=== PATIENT | female | born 1970 | race African-American/Black ===

== ENCOUNTER 2021-01-18 05:13 | Emergency (ER) | payer SELFPAY ==
[2021-01-18] VITALS (17 sets, daily range): BP systolic 131–176; BP diastolic 61–119; PULSE 71–112; RESP 14–24; TEMP 36.8; O2SAT 98–100
--- NOTE | ~2021-01-18 | XR_ITS ---
EXAMINATION: XR chest 1V portable DATE: 01/18/2021 06:17 INDICATION: Left chest pain. TECHNIQUE: A single frontal view of the chest was obtained. COMPARISON: Chest 2 views 12/17/2010, CT abdomen and pelvis 09/12/2019 FINDINGS: There is no pneumonia, pleural effusion, or pneumothorax. Cardiomegaly is noted. IMPRESSION: 1. Cardiomegaly. Reviewed, dictated and finalized at location A. IMPRESSION: 1. Cardiomegaly.
--- NOTE | 2021-01-18 05:28 | ECG_ITS ---
Measurements Intervals [place] Rate: 103 P: 52 MN: 150 QRS: 57 QRSD: 86 T: 24 QT: 334 QTc: 437 Interpretive Statements SINUS TACHYCARDIA DELAYED PRECORDIAL R/S TRANSITION BORDERLINE ECG Electronically Signed On 01-18-2021 7:14:24 CDT by Jose Mendosa D.O.
[2021-01-18 05:39] LABS: Basophils Percent Auto 0.2 % (0.2-1.2); Eosinophils Absolute Auto 0.2 K/mm3 (0-0.3); Eosinophils Percent Auto 4.8 % (0-4.4); Hematocrit 42.9 % (37.0-47.0); Hemoglobin 14.5 g/dL (12.0-15.0); Immature Granulocyte Absolute 0.01 K/mm3 (0.00-0.031); Immature Granulocyte Percent A 0.2 % (0-0.5); Lymphocytes Absolute Auto 1.24 K/mm3 (0.9-3.2); Lymphocytes Percent Auto 27.3 % (18.3-44.2); Mean Corpuscular HGB Conc 33.8 g/dl (32-36); Mean Corpuscular Hemoglobin 30.9 pg (26-34); Mean Corpuscular Volume 91.3 fl (80-100); Mean Platelet Volume 9.4 fl (7.4-10.4); Monocytes Absolute Auto 0.4 K/mm3 (0.1-0.6); Monocytes Percent Auto 8.1 % (2.6-8.5); Neutrophils Absolute Auto 2.7 K/mm3 (1.3-6.7); Neutrophils Percent Auto 59.4 % (45.5-73.1); Platelet Count Result 236 k/mm3 (150-375); Red Cell Distribution Width 13.4 % (11.5-14.5); White Blood Count 4.5 K/mm3 (4.5-10.0)
[2021-01-18 05:51] LABS: Alanine Aminotransferase 17 U/L (4-35); Albumin Level 4.3 g/dL (3.5-5.1); Alkaline Phosphatase 59 U/L (38-126); Anion Gap 9 mmol/L (8-16); Aspartate Amino Transferase 22 U/L (14-36); Bilirubin,Total 0.3 mg/dL (0.2-1.3); Blood Urea Nitrogen 14 mg/dL (7-17); Calcium 9.1 mg/dL (8.4-10.2); Carbon Dioxide 25 mmol/L (22-30); Chloride 107 mmol/L (98-107); Estimated Glomerular Filt Rate > 60; Glucose 125 mg/dL (65-105); INR 0.9; Lipase 121 U/L (23-300); Prothrombin Time 13.2 Seconds (11.1-14.7); Sodium 141 mmol/L (137-145)
[2021-01-18 05:52] LABS: Partial Thromboplastin Time 26.3 SECONDS (22.3-36.8)
--- NOTE | 2021-01-18 05:56 | ED.GENADULT ---
HPI - General Adult General Chief complaint: Chest Pain <Nirmal Bower MD - Last Filed: 01/18/21 05:58> Stated complaint: heart racing/chest tightness <Nirmal Bower MD - Last Filed: 01/18/21 05:58> Time Seen by Provider: 01/18/21 05:16 <Nirmal Bower MD - Last Filed: 01/18/21 05:58> History of Present Illness HPI narrative: Patient is a 50-year-old female presents to the emergency department with chief complaint of left-sided chest discomfort and palpitations. Patient reports that a week or so ago she fell landing on the left side of her body reports that she had pain in the muscles on that side and in her left shoulder. Patient states that evening she started feeling not so well and reported that she laid down and then felt as though she was having palpitations and had tightness in her chest. EMS was called the patient was initially tachycardic in the field and was given a sublingual nitro and aspirin by EMS. Patient states the pressure in her chest improved and reports that her heart rate is slowly calmed down at this point. Patient denies shortness of breath patient reports she has past medical history significant for hypertension reports no prior history of ID states it has been several years since she has had a stress test. Patient denies smoking. <Nirmal Bower MD - Last Filed: 01/18/21 05:58> Related Data Home medications: Home Medications Medication Instructions Recorded Confirmed amlodipine 10 mg PO DAILY 01/18/21 ferrous sulfate 325 mg PO DAILY 01/18/21 hydrochlorothiazide 12.5 mg PO DAILY 01/18/21 metoprolol tartrate 50 mg PO BID 01/18/21 <Nirmal Bower MD - Last Filed: 01/18/21 05:58> Allergies/adverse reactions: Allergies Allergy/AdvReac Type Severity Reaction Status Date / Time No Known Allergies Allergy Mild Unverified 07/19/11 10:33 <Nirmal Bower MD - Last Filed: 01/18/21 05:58> Review of Systems Review of Systems: Narrative: A 10 system review of systems was completed on the patient and is negative except for what is stated in the HPI. Nursing and ancillary documentation was reviewed. <Nirmal Bower MD - Last Filed: 01/18/21 05:58> [facility] Past Medical History Medical History: Medical History Arthritis Fibroids Hypertension <Nirmal Bower MD - Last Filed: 01/18/21 05:58> Surgical History Surgical History: Surgical History Hx of tubal ligation <Nirmal Bower MD - Last Filed: 01/18/21 05:58> Social History Social History: Social History Smoking status: Never smoker Gender identity (if verbalized by the patient): Female <Nirmal Bower MD - Last Filed: 01/18/21 05:58> Exam Narrative: Exam Narrative: GENERAL: Well-appearing, well-nourished, and in no acute distress. HEAD: Normocephalic, atraumatic. EYES: PERRLA and EOMI. ENT: Nares clear, no rhinorrhea or epistaxis. Mucous membranes moist. NECK: Supple. CHEST: Clear to auscultation. No respiratory distress. HEART: Regular rate and rhythm. No murmur heard. Normal peripheral pulses. ABDOMEN: Soft, nontender, nondistended, normal active bowel sounds. EXTREMITIES: Normal range of motion. No edema. SKIN: Warm, dry, no rash. NEURO: No focal deficits. Alert and oriented x3. PSYCH: Normal mood and affect. <Nirmal Bower MD - Last Filed: 01/18/21 05:58> Course Course Emergency Course: EKG shows sinus tachycardia with a rate of [address] elevation or ST depression <Nirmal Bower MD - Last Filed: 01/18/21 05:58> Reevaluation(s) Reevaluation #1: Patient presents with complaint of left chest pain and lateral that has been present for [address]
[2021-01-18 05:59] LABS: NT Pro B Type Natriuretic Pept 452 PG/ML (5-100)
[2021-01-18 06:10] LABS: Troponin I < 0.012 ng/mL (0.000-0.034)
--- NOTE | 2021-01-18 07:21 | PC.NURSE ---
Assumed pt care at this time, pt resting calmly on stretcher, vss, NAD noted, call light in reach, pt updated on wait times and plan of care, denies further concerns.
[2021-01-18 07:56] LABS: Add Urine Microscopic? YES; Appearance Urine Cloudy (Clear); Bacteria Urine Trace /hpf; Bilirubin Urine Negative (Negative); Blood Urine 3+ (Negative); Color Urine Yellow (Yellow); Glucose Urine UA Negative (Negative); Ketones Urine Negative (Negative); Leukocyte Esterase Ur Negative LEU/UL (Negative); Mucus Urine Rare /lpf; Nitrate Urine Negative (Negative); Protein Urine 2+ mg/dL (Negative); RBC Urine 21-50 /hpf (0-2); Specific Grav Ur 1.017 (1.001-1.035); Squamous Epithelial Cell Urine Many /hpf (Few); Urobilinogen Urine Negative mg/dL (<2.0)
[2021-01-18] MEDS: IBUPROFEN IV 800 MG/200 ML 800 MG/200 ML BAG 400 MG IVPB (08:26)
[2021-01-18] MEDS: POTASSIUM CHLORIDE 20 MEQ TABLET 40 MEQ PO (08:43)
[2021-01-18 08:44] LABS: Troponin I 0.015 ng/mL (0.000-0.034)
== END 2021-01-18 09:37 | disposition home or self-care (01) ==
PROVIDERS: Emergency Medicine; Emergency Provider General Practice
DX: R07.89 Other chest pain (principal); E87.6 Hypokalemia; R00.2 Palpitations; M19.90 Unspecified osteoarthritis, unspecified site; I10 Essential (primary) hypertension; R00.0 Tachycardia, unspecified
CPT/HCPCS: 36415; 71045; 80053; 81001; 83690; 83880; 84484; 85025; 85380; 85610; 85730; 93005; 96365; 99284; A9270; J1741

== ENCOUNTER 2021-12-17 05:07 | Emergency (ER) | payer SELFPAY ==
--- NOTE | ~2021-12-17 | XR_ITS ---
EXAMINATION: XR chest 2V DATE: 12/17/2021 05:43 INDICATION: Heart palpitations TECHNIQUE: PA and lateral views of the chest are obtained. COMPARISON: None available FINDINGS: The lungs are free of acute opacities. There is no pleural effusion or pneumothorax. Cardio megaly is noted. There is mild thoracic spondylosis. IMPRESSION: 1. No acute cardiopulmonary abnormality. Reviewed, dictated and finalized at location A. ING AND CANCELING MACHINE OPERATOR
[2021-12-17 05:05] VITALS: BP 173/87; PULSE 101; RESP 22; TEMP 37.1; O2SAT 100
--- NOTE | 2021-12-17 05:09 | ECG_ITS ---
Measurements Intervals [place] Rate: 94 P: 49 IA: 145 QRS: 44 QRSD: 86 T: 25 QT: 336 QTc: 420 Interpretive Statements SINUS RHYTHM DELAYED PRECORDIAL R/S TRANSITION BORDERLINE ST ABNORMALITY- AMTEROLATERAL LEADS BORDERLINE ECG Electronically Signed On 12-19-2021 15:15:51 HOT ROLL LAMINATOR by Jose Mendosa D.O.
[2021-12-17 05:41] LABS: Basophils Percent Auto 0.2 % (0.2-1.2); Eosinophils Absolute Auto 0.2 K/mm3 (0-0.3); Eosinophils Percent Auto 4.1 % (0-4.4); Hematocrit 37.4 % (37.0-47.0); Hemoglobin 12.1 g/dL (12.0-15.0); Immature Granulocyte Absolute 0.02 K/mm3 (0.00-0.031); Immature Granulocyte Percent A 0.5 % (0-0.5); Lymphocytes Absolute Auto 0.88 K/mm3 (0.9-3.2); Lymphocytes Percent Auto 21.3 % (18.3-44.2); Mean Corpuscular HGB Conc 32.4 g/dl (32-36); Mean Corpuscular Hemoglobin 28.5 pg (26-34); Mean Platelet Volume 9.5 fl (7.4-10.4); Monocytes Absolute Auto 0.4 K/mm3 (0.1-0.6); Monocytes Percent Auto 9.2 % (2.6-8.5); Neutrophils Absolute Auto 2.7 K/mm3 (1.3-6.7); Neutrophils Percent Auto 64.7 % (45.5-73.1); Platelet Count Result 249 k/mm3 (150-375); Red Blood Count 4.25 M/mm3 (4.2-5.4); White Blood Count 4.1 K/mm3 (4.5-10.0)
[2021-12-17 05:51] LABS: Anion Gap 12 mmol/L (8-16); Blood Urea Nitrogen 14 mg/dL (7-17); Calcium 8.7 mg/dL (8.4-10.2); Carbon Dioxide 22 mmol/L (22-30); Chloride 104 mmol/L (98-107); Estimated Glomerular Filt Rate > 60; Glucose 116 mg/dL (65-110); Potassium 3.4 mmol/L (3.4-5.0); Sodium 138 mmol/L (137-145)
[2021-12-17 06:02] LABS: Troponin I < 0.012 ng/mL (0.000-0.034)
[2021-12-17 06:46] VITALS: BP 157/99; PULSE 86; RESP 18; O2SAT 99
--- NOTE | 2021-12-17 06:48 | ED.ARRPALP ---
HPI - Arrhythmia/Palpitations General Chief Complaint: Arrhythmia/Palpitations Stated Complaint: PALPITATIONS Time Seen by Provider: 12/17/21 05:15 History of Present Illness HPI narrative: Patient is a 51-year-old female who presents ER with reports of heart palpitations. Ongoing since 10:30 PM. No aggravating or alleviating factors. Does not feel like she is skipping a beat. No history of arrhythmia. Denies having any anxiety. She does report she ran out of her blood pressure medications 2 days ago is unsure if this is related. She has not scheduled follow-up with PCP. Related Data Home Medications Medication Instructions Recorded Confirmed amlodipine 10 mg PO DAILY 01/18/21 ferrous sulfate 325 mg PO DAILY 01/18/21 hydrochlorothiazide 12.5 mg PO DAILY 01/18/21 metoprolol tartrate 50 mg PO BID 01/18/21 Allergies Allergy/AdvReac Type Severity Reaction Status Date / Time No Known Allergies Allergy Mild Verified 12/17/21 05:13 Review of Systems Review of Systems: All systems reviewed & are unremarkable except as noted in HPI and below Constitutional: Constitutional: Denies chills, Denies fever(s) and Denies weakness ENT: Denies nasal congestion and Denies sore throat Cardiovascular: Cardiovascular: Denies chest pain, Reports rapid heart rate and Denies radiating jaw, neck or arm pain Respiratory: Respiratory: Denies cough, Denies dyspnea and Denies wheezing Gastrointestinal: Gastrointestinal: Denies abdominal pain, Denies nausea and Denies vomiting Musculoskeletal: Musculoskeletal: Denies back pain and Denies muscle cramps Neurologic: Denies headache(s), Denies focal weakness and Denies numbness PMFSH Past Medical History Medical History Arthritis Fibroids Hypertension Surgical History Surgical History Hx of tubal ligation Social History Social History Smoking status: Never smoker Gender identity (if verbalized by the patient): Female Exam Narrative: GENERAL: Well-appearing, well-nourished, and in no acute distress. HEAD: Normocephalic, atraumatic. ENT: Mucous membranes moist. CHEST: Clear to auscultation. No respiratory distress. HEART: Regular rate and rhythm. No murmur heard. Normal peripheral pulses. ABDOMEN: Soft, nontender, nondistended. EXTREMITIES: Normal range of motion. No edema. SKIN: Warm, dry, no rash. NEURO: Alert and oriented x3. PSYCH: Normal mood and affect. Course Course Emergency Course: Patient form results. Resting comfortably. No arrhythmia on EKG or cardiac monitoring. Occasionally has sinus tachycardia. Labs normal. Vital Signs Vital signs: Vital Signs Temperature 98.7 F 12/17/21 05:05 Pulse Rate 101 H 12/17/21 05:05 Respiratory Rate 22 H 12/17/21 05:05 Blood Pressure 173/87 H 12/17/21 05:05 Pulse Oximetry 100 12/17/21 05:05 Temperature 98.7 F 12/17/21 05:05 Pulse Rate 86 12/17/21 06:46 Respiratory Rate 18 12/17/21 06:46 Blood Pressure 157/99 H 12/17/21 06:46 Pulse Oximetry 99 12/17/21 06:46 MDM - Arrhythmia/Palpitations Lab Data Result diagrams: 12/17/21 05:31 12/17/21 05:31 Labs: Lab Results 12/17/21 12/17/21 Range/Units 05:31 05:31 WBC 4.1 L (4.5-10.0) K/mm3 RBC 4.25 (4.2-5.4) M/mm3 Hgb 12.1 (12.0-15.0) g/dL Hct 37.4 (37.0-47.0) % MCV 88.0 (80-100) fl MCH 28.5 (26-34) pg MCHC 32.4 (32-36) g/dl RDW 13.0 (11.5-14.5) % Plt Count 249 (150-375) k/mm3 MPV 9.5 (7.4-10.4) fl Immature Gran % (Auto) 0.5 (0-0.5) % Neut % (Auto) 64.7 (45.5-73.1) % Lymph % (Auto) 21.3 (18.3-44.2) % [place] % (Auto) 9.2 H (2.6-8.5) % Eos % (Auto) 4.1 (0-4.4) % Baso % (Auto) 0.2 (0.2-1.2) % Lymph # (Auto) 0.88 L (0.9-3.2) K/mm3 [place] # (Auto) 0.4
[2021-12-17 07:10] VITALS: BP 142/80; PULSE 78; RESP 16; O2SAT 99
== END 2021-12-17 07:11 | disposition home or self-care (01) ==
PROVIDERS: Emergency Provider Emergency Medicine
DX: R00.2 Palpitations (principal); I10 Essential (primary) hypertension; M19.90 Unspecified osteoarthritis, unspecified site; R94.31 Abnormal electrocardiogram [ECG] [EKG]
CPT/HCPCS: 36415; 71046; 80048; 84484; 85025; 93005; 99284

== ENCOUNTER 2022-11-16 04:38 | Emergency (ER) | payer SELFPAY ==
--- NOTE | ~2022-11-16 | XR_ITS ---
EXAMINATION: XR chest 1V portable DATE: 11/16/2022 05:51 INDICATION: Chest pain. Shortness of breath. TECHNIQUE: A single frontal view of the chest was obtained. COMPARISON: Chest 2 views 12/17/2021, CT abdomen and pelvis 09/12/2019 FINDINGS: There is no pneumonia, pleural effusion, or pneumothorax. Cardiomegaly is noted. IMPRESSION: 1. Cardiomegaly. Reviewed, dictated and finalized at location A. TRONIC GAMING DEVICE SUPERVISOR IMPRESSION: 1. Cardiomegaly.
[2022-11-16 04:49] VITALS: PULSE 94; PULSE 97; RESP 13; TEMP 36.7; O2SAT 99
--- NOTE | 2022-11-16 05:05 | ECG_ITS ---
Measurements Intervals [place] Rate: 91 P: 54 RI: 139 QRS: 45 QRSD: 81 T: 27 QT: 352 QTc: 434 Interpretive Statements SINUS RHYTHM BASELINE ARTIFACT- I, III, AVL, V6 NORMAL ECG COMPARED TO ECG 12/17/2021 05:12:58 NO SIGNIFICANT CHANGES Electronically Signed On 11-16-2022 8:06:45 WEEKEND ANCHOR by Jose Mendosa D.O.
[2022-11-16 05:19] LABS: Basophils Percent Auto 0.5 % (0.2-1.2); Eosinophils Absolute Auto 0.3 K/mm3 (0-0.3); Eosinophils Percent Auto 7.3 % (0-4.4); Hematocrit 32.1 % (37.0-47.0); Hemoglobin 9.6 g/dL (12.0-15.0); Immature Granulocyte Absolute 0.01 K/mm3 (0.00-0.031); Immature Granulocyte Percent A 0.2 % (0-0.5); Lymphocytes Absolute Auto 0.95 K/mm3 (0.9-3.2); Lymphocytes Percent Auto 23.1 % (18.3-44.2); Mean Corpuscular HGB Conc 29.9 g/dl (32-36); Mean Corpuscular Volume 73.6 fl (80-100); Mean Platelet Volume 9.2 fl (7.4-10.4); Monocytes Absolute Auto 0.3 K/mm3 (0.1-0.6); Monocytes Percent Auto 7.1 % (2.6-8.5); Neutrophils Absolute Auto 2.5 K/mm3 (1.3-6.7); Neutrophils Percent Auto 61.8 % (45.5-73.1); Platelet Count Result 291 k/mm3 (150-375); Red Blood Count 4.36 M/mm3 (4.2-5.4); Red Cell Distribution Width 16.2 % (11.5-14.5); White Blood Count 4.1 K/mm3 (4.5-10.0)
[2022-11-16 05:28] LABS: Anion Gap 8 mmol/L (8-16); Blood Urea Nitrogen 15 mg/dL (7-17); Carbon Dioxide 25 mmol/L (22-30); Chloride 105 mmol/L (98-107); Estimated Glomerular Filt Rate > 60; Glucose 117 mg/dL (65-110); Potassium 3.6 mmol/L (3.4-5.0); Sodium 138 mmol/L (137-145)
[2022-11-16 05:39] LABS: Troponin I < 0.012 ng/mL (0.000-0.034)
[2022-11-16 05:54] LABS: Ovalocytes 1+ (NORMAL); Platelet Estimate Adequate (Adequate)
[2022-11-16 06:04] LABS: Schistocytes None Seen (NORMAL)
[2022-11-16 06:28] LABS: Appearance Urine Clear (Clear); Bilirubin Urine Negative (Negative); Blood Urine 2+ (Negative); Color Urine Yellow (Yellow); Glucose Urine UA Negative (Negative); Ketones Urine Negative (Negative); Leukocyte Esterase Ur Negative LEU/UL (Negative); Nitrate Urine Negative (Negative); Protein Urine 2+ mg/dL (Negative); Specific Grav Ur 1.015 (1.001-1.035); Urobilinogen Urine 0.2 mg/dL (<2.0); pH Urine 5.5 (5.0-9.0)
--- NOTE | 2022-11-16 06:29 | ED.ARRPALP ---
HPI - Arrhythmia/Palpitations General Chief Complaint: Arrhythmia/Palpitations Stated Complaint: PALPITATIONS Time Seen by Provider: 11/16/22 04:45 History of Present Illness HPI narrative: Patient presents here stating that she was going into work today, when she started feeling extremely anxious and palpitations. She has been feeling stressed about her work since a new company took over. Endorsing some shortness of breath. She is also stating that she noticed some blood in her urine, she does have fibroids and has very heavy periods. Related Data Home Medications Medication Instructions Recorded Confirmed amlodipine 10 mg tablet 10 mg PO DAILY 01/18/21 ferrous sulfate 325 mg (65 mg 325 mg PO DAILY 01/18/21 iron) tablet hydrochlorothiazide 12.5 mg tablet 12.5 mg PO DAILY 01/18/21 metoprolol tartrate 50 mg tablet 50 mg PO BID 01/18/21 Allergies Allergy/AdvReac Type Severity Reaction Status Date / Time No Known Allergies Allergy Mild Verified 12/17/21 05:13 Review of Systems Review of Systems: CONST: No fever. HEENT: No sore throat C/V: Palpitations RESP: shortness of breath GI: No abdominal pain : Some blood in urine. M/S: No joint pain. SKIN: No rash. NEURO: [No headache or focal numbness or weakness] PSYCH: Stress /anxiety PMFSH Past Medical History Medical History Arthritis Fibroids Hypertension Surgical History Surgical History Hx of tubal ligation Social History Social History Smoking status: Never smoker Gender identity (if verbalized by the patient): Female Exam Narrative: EXAMINATION OF ORGAN SYSTEMS/BODY AREAS: Constitutional: Vital signs per nursing GENERAL:[No acute distress, non-toxic appearing.] HEAD: Normal with no signs of head trauma. EYES: EOMI, conjunctiva normal ENT: Hearing grossly intact LUNGS: Nonlabored breathing. HEART: [Regular rate and rhythm] ABD: [Soft], [nontender to palpation] EXT: Normal range of motion SKIN: [No rashes or lesions.] NEURO: [Alert and oriented x 3. No gross focal sensory or strength deficits.] PSYCH: Normal affect Course Vital Signs Vital signs: Vital Signs Temperature 98.0 F 11/16/22 04:49 Pulse Rate 97 11/16/22 04:49 Respiratory Rate 13 11/16/22 04:49 Pulse Oximetry 99 11/16/22 04:49 Oxygen Delivery Room Air 11/16/22 04:49 Temperature 98.0 F 11/16/22 04:49 Pulse Rate 94 11/16/22 04:49 Respiratory Rate 13 11/16/22 04:49 Pulse Oximetry 99 11/16/22 04:49 Oxygen Delivery Room Air 11/16/22 04:49 MDM - Arrhythmia/Palpitations MDM Narrative Medical decision making narrative: ED COURSE AND MEDICAL DECISION MAKIN-year-old female presenting with palpitations and chest tightness. EKG done in triage negative for acute ischemic changes. Cardiac workup is initiated. EKG: Performed in triage and interpreted by me. Normal sinus rhythm. Rate 91. Normal axis. AL normal. QRS duration normal. QTc normal. No pathologic Q waves. No ST segment elevation or depression to suggest acute ischemia. No RV strain pattern. HEART score is 1 with no acute ischemic changes on EKG and negative troponin making ACS unlikely. Presentation not consistent with dissection or aneurysm without radiation of pain or pulse deficits. CXR negative for mediastinal widening. No abdominal pain or signs of sepsis that would be concerning for esophageal perforation or mediastinitis. No cardiomegaly or JVD to suggest pericardial effusion/tamponade. I suspect symptoms most likely due to anxiety. Hemoglobin is also slightly low at 9.6, which I suspect may be from her heavy uterine bleeding that she endorses, for which I will recommend she follow up with OBGYN. Urine does have some trace blood in it, but otherwise not consistent with UTI, I will have patient follow-up with urology.
[2022-11-16 06:37] LABS: Mucus Urine Rare /lpf; RBC Urine 0-2 /hpf (0-2); Squamous Epithelial Cell Urine Occasional /hpf (Few); WBC Urine 0-3 /hpf
[2022-11-16 06:40] LABS: Add Urine Microscopic? YES
== END 2022-11-16 07:10 | disposition home or self-care (01) ==
PROVIDERS: Emergency Provider Emergency Medicine; PCP Family Medicine
DX: R00.2 Palpitations (principal); R31.29 Other microscopic hematuria; D64.9 Anemia, unspecified; F41.9 Anxiety disorder, unspecified; M19.90 Unspecified osteoarthritis, unspecified site; I51.7 Cardiomegaly
CPT/HCPCS: 36415; 71045; 80048; 81001; 84484; 85025; 93005; 99284

== ENCOUNTER 2023-12-27 09:50 | Emergency (ER) | payer SELFPAY ==
--- NOTE | ~2023-12-27 | CT_ITS ---
CT of the Abdomen and Pelvis: Indication: Abdominal Technique: 2.5 mm axial scans were obtained through the abdomen and pelvis following intravenous adm inistration of 100 cc of Omnipaque 350. Dose reduction technique was used on this scan by utilizing a utomated exposure control and iterative reconstruction technique. The dose-length product (DLP) was 1 394.57 mGy-cm. COMPARISON: 09/12/2019 Findings: Scans through the lung bases are unremarkable. The liver, spleen, pancreas, gallbladder, adrenals and right kidney are within normal limits. There i s left renal cortical scarring superiorly. No evidence of aortic aneurysm. No lymphadenopathy. There is apparent wall thickening of the gastric antrum/proximal duodenum with suspected also present . No evidence for perforation. Remaining bowel loops are unremarkable. There is an extremely large pelvic mass, which appears to be centered within the uterus and invade th rough the left uterine wall into the left abdomen and left/inferior pelvis. Massive mildly heterogene ous, and overall measures up to approximately 28 x 16.5 x 21 cm in extent. There is extensive abutmen t of the superior aspect of the urinary bladder. Bladder otherwise unremarkable. No ascites. Impression: Suspected peptic ulcer disease at the gastric antrum/proximal duodenum, with wall thickening and ulce r crater present. No evidence for perforation. Massive uterine enlargement, with mass involving the uterus and extending to the left pelvis/left abd omen measuring approximately 28 x 16.5 x 21 cm in extent. This is essentially stable from prior exam, therefore most consistent with benign lesion, most likely extensive fibroids. Reviewed, dictated and finalized at location . ER AND SORTER LOAD AND UNLOAD Impression: Suspected peptic ulcer disease at the gastric antrum/proximal duodenum, with wa ll thickening and ulcer crater present. No evidence for perforation. Massive uterine enlargement, with mass involving the uterus and extending to th e left pelvis/left abdomen measuring approximately 28 x 16.5 x 21 cm in extent. This is essentially stable from prior exam, therefore most consistent with kalin ign lesion, most likely extensive fibroids.
--- NOTE | ~2023-12-27 | XR_ITS ---
EXAMINATION: XR chest 2V DATE: 12/27/2023 11:08 INDICATION: Cough TECHNIQUE: Frontal and lateral views of the chest are obtained COMPARISON: 11/16/2022 FINDINGS: There are minimal airspace opacities of the lingula and left lower lobe. No pleural effusio n or pneumothorax. The cardiomediastinal silhouette is stable. The visualized bones and soft tissues are unremarkable. IMPRESSION: 1. Minimal left basilar airspace opacities, consistent with atelectasis versus pneumonia. Reviewed, dictated and finalized at location L. ER HELPER SORTING YARD
[2023-12-27 09:54] VITALS: BP 175/97; PULSE 120; RESP 18; TEMP 36.8; O2SAT 100
--- NOTE | 2023-12-27 10:08 | ECG_ITS ---
Measurements Intervals [place] Rate: 108 P: 53 MD: 163 QRS: 35 QRSD: 84 T: 39 QT: 315 QTc: 423 Interpretive Statements SINUS TACHYCARDIA NONSPECIFIC T-WAVE ABNORMALITY ABNORMAL RHYTHM ECG COMPARED TO ECG 11/16/2022 04:47:44 SINUS TACHYCARDIA NOW PRESENT Electronically Signed On 12-27-2023 13:30:52 WASH DRILLER by Ayla Lima M.D.
--- NOTE | 2023-12-27 10:10 | ED.GENADULT ---
[facility] - General Adult General Chief complaint: Abdominal Pain Stated complaint: abd pain Time Seen by Provider: 12/27/23 09:56 Source: patient Mode of arrival: ambulatory Limitations: no limitations History of Present Illness HPI narrative: This is a 53-year-old female who presents to the ED with chief complaint of right upper quadrant abdominal pain for the past couple of weeks intermittently. Patient reports that radiates up to the shoulder at times and radiates inferiorly at times. She does note that she has had some subjective fevers and chills. States that she has a productive cough for the past couple of weeks with clear sputum. Denies nausea, vomiting, diarrhea, urinary symptoms or flank pain. Denies chest pain, shortness of breath. Related Data Home Medications Medication Instructions Recorded Confirmed amlodipine 10 mg tablet 10 mg PO DAILY 01/18/21 ferrous sulfate 325 mg (65 mg 325 mg PO DAILY 01/18/21 iron) tablet hydrochlorothiazide 12.5 mg tablet 12.5 mg PO DAILY 01/18/21 metoprolol tartrate 50 mg tablet 50 mg PO BID 01/18/21 Allergies Allergy/AdvReac Type Severity Reaction Status Date / Time No Known Allergies Allergy Mild Verified 12/17/21 05:13 Review of Systems Review of Systems: All systems as dictated in [facility] Past Medical History Medical History Arthritis Fibroids Hypertension Surgical History Surgical History Hx of tubal ligation Social History Social History Smoking status: Never smoker Gender identity (if verbalized by the patient): Female Exam Narrative: GENERAL: Well-appearing, well-nourished, and in no acute distress. HEAD: Normocephalic, atraumatic. EYES: PERRLA and EOMI. ENT: Nares clear, no rhinorrhea or epistaxis. Mucous membranes moist. Oropharynx without tonsillar hypertrophy exudate or other lesions. NECK: Supple. No adenopathy or masses. CHEST: No respiratory distress. Clear to auscultation. No wheezes rales or rhonchi. 99% room air. HEART: Regular rate and rhythm. No murmur heard. Normal peripheral pulses. ABDOMEN: Mild right upper quadrant tenderness. Soft, otherwise nontender, nondistended, normal active bowel sounds. MSK: Normal range of motion. No edema. SKIN: Warm, dry, no rash. NEURO: Alert and oriented x3. No focal deficits. PSYCH: Normal mood and affect. Course Course Emergency Course: Re-evaluation 10 23: Patient had the GI cocktail and does not feel that this improved anything. She is now telling us that she has some chest pain across the chest. She states this has been going on intermittently for the past couple of weeks as well. Vital Signs Vital signs: Vital Signs Temperature 98.2 F 12/27/23 09:54 Pulse Rate 120 H 12/27/23 09:54 Respiratory Rate 18 12/27/23 09:54 Blood Pressure 175/97 H 12/27/23 09:54 Pulse Oximetry 100 12/27/23 09:54 Oxygen Delivery Room Air 12/27/23 09:54 Temperature 98.2 F 12/27/23 09:54 Pulse Rate 70 12/27/23 13:27 Respiratory Rate 16 12/27/23 13:27 Blood Pressure 157/77 H 12/27/23 13:27 Pulse Oximetry 100 12/27/23 13:27 Oxygen Delivery Room Air 12/27/23 09:54 Medical Decision Making MDM Narrative Medical decision making narrative: This is a 53-year-old female who presents to the ED with chief complaint upper abdominal pain and productive cough for the past couple of weeks. Vitals show initial slight tachycardia but otherwise normal. Exam shows mild right upper quadrant tenderness. Lab work shows normal white count CBC. CMP unremarkable. Troponin negative. D-dimer negative. eKG shows sinus rhythm with no acute ischemic findings. COVID test is positive. Suspect she had acute COVID infection a couple of weeks ago. May be developing a secondary pneumonia. Chest x-ray: 1. Minimal left basilar ai
[2023-12-27 10:16] VITALS: BP 156/88; PULSE 92; RESP 15; O2SAT 97
[2023-12-27] MEDS: SODIUM CHLORIDE 0.9% IV 1,000 ML 999 ML IV CONT (10:33)
[2023-12-27 10:44] LABS: Basophils Percent Auto 0.7 % (0.2-1.2); Eosinophils Absolute Auto 0.1 K/mm3 (0-0.3); Hematocrit 36.4 % (37.0-47.0); Hemoglobin 11.1 g/dL (12.0-15.0); Immature Granulocyte Absolute 0.02 K/mm3 (0.00-0.031); Immature Granulocyte Percent A 0.4 % (0-0.5); Lymphocytes Absolute Auto 0.76 K/mm3 (0.9-3.2); Lymphocytes Percent Auto 16.7 % (18.3-44.2); Mean Corpuscular HGB Conc 30.5 g/dl (32-36); Mean Corpuscular Hemoglobin 22.9 pg (26-34); Mean Corpuscular Volume 75.2 fl (80-100); Mean Platelet Volume 9.1 fl (7.4-10.4); Monocytes Absolute Auto 0.2 K/mm3 (0.1-0.6); Monocytes Percent Auto 5.3 % (2.6-8.5); Neutrophils Absolute Auto 3.4 K/mm3 (1.3-6.7); Neutrophils Percent Auto 74.9 % (45.5-73.1); Platelet Count Result 345 k/mm3 (150-375); Red Blood Count 4.84 M/mm3 (4.2-5.4); Red Cell Distribution Width 15.8 % (11.5-14.5); White Blood Count 4.5 K/mm3 (4.5-10.0)
[2023-12-27 10:49] LABS: Add Urine Microscopic? YES; Appearance Urine Clear (Clear); Bacteria Urine None Seen /hpf; Bilirubin Urine Negative (Negative); Blood Urine Trace (Negative); Color Urine Yellow (Yellow); Glucose Urine UA Negative (Negative); Ketones Urine Negative (Negative); Leukocyte Esterase Ur Negative LEU/UL (Negative); Nitrate Urine Negative (Negative); Non Pathogenic Casts 0-2; Protein Urine Negative (Negative); RBC Urine 0-2 /hpf (0-2); Specific Grav Ur 1.005 (1.001-1.035); Squamous Epithelial Cell Urine None seen /hpf (Few); Urobilinogen Urine 0.2 mg/dL (<2.0); WBC Urine 0-5 /hpf; pH Urine 5.5 (5.0-9.0)
[2023-12-27 10:51] LABS: Estimated Glomerular Filt Rate > 60
[2023-12-27 10:52] LABS: Lactic Acid Reflex 0.8 mmol/L (0.7-2.0)
[2023-12-27 10:54] LABS: Alanine Aminotransferase 16 U/L (6-35); Albumin Level 4.5 g/dL (3.5-5.1); Alkaline Phosphatase 86 U/L (38-126); Anion Gap 10 mmol/L (8-16); Aspartate Amino Transferase 24 U/L (14-36); Bilirubin,Total 0.7 mg/dL (0.2-1.3); Blood Urea Nitrogen 12 mg/dL (7-17); Calcium 10.3 mg/dL (8.4-10.2); Carbon Dioxide 25 mmol/L (22-30); Chloride 103 mmol/L (98-107); Estimated Glomerular Filt Rate > 60; Glucose 107 mg/dL (65-110); Lipase 128 U/L (23-300); Potassium 3.3 mmol/L (3.4-5.0); Sodium 138 mmol/L (137-145)
[2023-12-27 11:15] VITALS: BP 157/80; PULSE 113; RESP 25; O2SAT 98
[2023-12-27] MEDS: BELLADONNA ALK/PHENOB ELIX 10 ML, MAG HYDROX/ALUMINUM HYD/SIMETH 30 ML, LIDOCAINE HCL 2... PO (11:56)
[2023-12-27 11:58] LABS: Influenza A QL RT-PCR Negative (Negative); Influenza B QL RT-PCR Negative (Negative); RSV RNA, RT-PCR Negative (Negative); SARS-CoV-2 RNA PCR Positive (Negative)
[2023-12-27 12:43] LABS: D Dimer 0.43 ug/mL (<0.48)
[2023-12-27 12:45] LABS: Troponin I < 0.012 ng/mL (0.000-0.034)
[2023-12-27 13:27] VITALS: BP 157/77; PULSE 70; RESP 16; O2SAT 100
== END 2023-12-27 13:28 | disposition home or self-care (01) ==
PROVIDERS: Emergency Provider Physician Assistant; PCP Family Medicine
DX: K27.9 Peptic ulcer, site unspecified, unspecified as acute or chronic, without hemorrhage or perforation (principal); U07.1 COVID-19; R05.9 Cough, unspecified; R91.8 Other nonspecific abnormal finding of lung field; I10 Essential (primary) hypertension; M19.90 Unspecified osteoarthritis, unspecified site; R00.0 Tachycardia, unspecified; R94.31 Abnormal electrocardiogram [ECG] [EKG]; N85.8 Other specified noninflammatory disorders of uterus
CPT/HCPCS: 36415; 71046; 74177; 80053; 81001; 82248; 83605; 83690; 84484; 85025; 85380; 87637; 93005; 96360; 99284; A9270; J7030; Q9967

== ENCOUNTER 2024-12-05 02:23 | Emergency (ER) | payer SELFPAY ==
--- NOTE | ~2024-12-05 | CT_ITS ---
EXAMINATION: CT abdomen pelvis w con DATE: 12/05/2024 07:29 INDICATION: Epigastric pain. TECHNIQUE: Computed tomography (CT) of the abdomen and pelvis was performed with 100 cc Omnipaque 350 intravenous contrast. The dose-length product was 1372.63 mGy-cm. Automated exposure control and ite rative reconstruction technique were employed. COMPARISON: CT dated 12/27/2023. FINDINGS: Lung bases are unremarkable. No significant pleural or pericardial effusion. The liver, spl een, pancreas, adrenal glands and kidneys are unremarkable. Gallbladder is present. There is mild thi ckening of the duodenum with mild surrounding fatty infiltration, suspicious for duodenitis. No evide nce for perforation. Persistent severe enlargement of the uterus containing multiple heterogeneous ma sses, consistent with fibroid changes. Given the lack of significant change from prior study this is unlikely to represent sarcomatous degeneration of fibroids. Bladder is compressed deviating to the ri ght. No significant vascular abnormality. No lymphadenopathy. No free air or free fluid. No acute oss eous abnormality. Sclerotic lesion of the left ilium is unchanged, likely bone island. IMPRESSION: 1. Mild thickening of the duodenum with subtle surrounding fatty infiltration, suspicious for duodeni tis. No evidence for perforation. 2: Stable severe enlargement of the uterus with diffusely heterogeneous appearance consistent with fi broid changes. Given the lack of significant change this is unlikely to represent sarcomatous degener ation. Reviewed, dictated and finalized at location A. KING MACHINE OPERATOR IMPRESSION: 1. Mild thickening of the duodenum with subtle surrounding fatty infiltration, suspicious for duodenitis. No evidence for perforation. 2: Stable severe enlargement of the uterus with diffusely heterogeneous appeara nce consistent with fibroid changes. Given the lack of significant change this is unlikely to represent sarcomatous degeneration.
--- NOTE | ~2024-12-05 | XR_ITS ---
EXAMINATION: XR chest 1V portable 12/05/2024 08:27 INDICATION: Epigastric pain PROCEDURE: AP portable chest COMPARISON: Comparison to multiple prior studies sequentially, with oldest reviewed study dated 01/18. FINDINGS: The lungs are clear. The cardiomediastinal silhouette is within normal limits. There are no pleural effusions. There is no pneumothorax suspected. IMPRESSION: 1: NO ACUTE CARDIOPULMONARY DISEASE. Reviewed, dictated and finalized at location A. MAKER APPRENTICE
[2024-12-05 02:25] VITALS: BP 178/77; PULSE 113; RESP 14; TEMP 36.6; O2SAT 98
--- OUTSIDE RECORDS SUMMARY | 2024-12-05 02:26 | XMS_ITS | Data Portability ---
Author Organization [facility] Address [address] [place] [address] Assessment No assessment recorded. Plan of Treatment Reminders Order Date Submit Date Provider Last Modified By Organization Details Last Modified Time Details Appointments NEW PATIENT 30 2024 03:00P M TERRY REEVES Not available Not available Not available Lab None recorded . Referral ophthalm ologist referral 2019 aron Cowart MD, [address], [place], [address], 05/11/2020 10:17:28 Procedures None recorded . Surgeries None recorded . Imaging MRI, brain + pituitar y, w/wo contrast 2019 020 [email or web address] Not available 03/05/2020 09:50:19 XR, shoulder 2020 021 [facility] ([facility]mit [facility]), [address] [place], [address], 01/15/2021 11:55:11 Medication Orders amlodipi ne 10 mg tablet 2019 020 [id number], [address] , [place], [address], 04/30/2020 15:45:32 hydrochl orothiaz julius 12.5 mg tablet 2019 020 [id number], [address], [place], [address], 04/30/2020 15:45:32 metoprol ol tartrate 50 mg tablet 2019 020 [facility], [address] [place] [address], [place], [address], 04/30/2020 15:45:31 amlodipi ne 10 mg tablet 2020 021 [id number] In [facility], [address] [place] [address], [place], [address], 01/14/2021 18:52:46 hydrochl orothiaz julius 12.5 mg tablet 2020 021 [facility] In [facility], [address] [place] [address], [place], [address], 01/14/2021 18:52:46 metoprol ol tartrate 50 mg tablet 2020 021 [facility] [id number], [place], [address], 01/14/2021 18:52:47 amlodipi ne 10 mg tablet 2021 022 [facility], [address] [place] [address], [address], 12/29/2021 16:07:58 hydrochl orothiaz julius 12.5 mg tablet 2021 022 [facility], [facility] [place], [address], 12/29/2021 16:08:03 metoprol ol tartrate 50 mg tablet 2021 022 [facility], [address] [place], [address], 12/29/2021 16:08:03 amlodipi ne 10 mg tablet 2021 022 [facility], [address] [place], [address], 11/02/2022 17:37:36 hydrochl orothiaz julius 12.5 mg tablet 2021 022 [facility], [address] [facility], [place], [address], 11/02/2022 17:37:44 metoprol ol tartrate 50 mg tablet 2021 022 [facility], [address] [facility], [place], [address], 11/02/2022 17:37:41 Patient TargetsNo targets recorded. Patient Instructions Encounter Date Encounter Id Patient Instructions Last Modified By Organization Details Last Modified Time 02/26/2020 [id number] galactorrhea: care instructions [email or web address] Not available 02/26/2020 14:37:57 04/30/2020 [id number] dash diet: care instructions Not available 04/30/2020 15:45:27 How To Lower Blood Pressure Not available 04/30/2020 15:45:27 Potential complications of uncontrolled HTN. Stable on BP meds. Increase exercise. Limit salt intake. Avoid alcohol. Not available 04/30/2020 15:45:25 01/14/2021 [id number] Potential complications of uncontrolled HTN. Stable on BP meds. Increase exercise. Limit salt intake. Avoid alcohol. Not available 01/14/2021 18:58:37 11/02/2022 [id number] learning about high blood pressure [email or web address] Not available 11/02/2022 17:41:06 high blood pressure: care instructions [email or web address] Not available 11/02/2022 17:41:06 dash diet: care instructions [email or web address] Not available 11/02/2022 17:41:06 Reason for Referral Epic Professional Referral for Essential hypertension Referring Physician: Radha Alston, Family Medicine, Encounter Date: 04/30/2020 Results Created Date Observation Date Name Description Value Unit Range Abnormal Flag Note LastModifiedBy Organization Detail LastModifiedTime 11/16/1911/16/2022 XR, chest No observ ation record ed. [facility] [address], [place], [address], 11/17/2022 12:11:42 12/27/19 24 12/27/2023 CT, abdom en + pelvi s, w/ contr ast No observ ation record ed. [address], [place], [address], 12/31/2023 11:11:25 12/27/19 24 12/27/2023 XR, chest No observ ation record ed. [address], [place], [address], 12/31/2023 11:11:38 Result Notes None recorded. Problems Name Problem SNOMED Code Status Onset Date Resolution Date Notes Provider Name and Address Organization Details Recorded Time Essential hypertension 17805458 Active Alfreda Mckinnon MA null, [place] 17:27:29 Problem Notes None recorded. Procedures Surgical History Date Name Laterality Status Provider Name and Address Organization Details Recorded Time 0 Date of Last Pap Smear completed Alfreda Mckinnon MA [place] [facility] [place] 11/02/2022 17:28:09 Tubal Ligation completed Ирина Mcdermott MA [place] 01/15/2020 14:32:29 Imaging Results Imaging Date Name Status LastModified by [facility]iz [facility] Details LastModified Time 11/16/2022 XR, chest completed [address], [place], [address], 11/17/2022 12:11:42 12/27/2023 CT, abdomen + pelvis, w/ contrast completed [address], [place], [address], 12/31/2023 11:11:25 12/27/2023 XR, chest completed [address], [place], [address], 12/31/2023 11:11:38 Procedure Notes None recorded. Medical Equipment None Reported. Allergies No known drug allergies Medications Name Sig Start Date Stop Date Status Note LastModified by Organization Details LastModified Time azithromyci n 250 mg tablet TAKE 2 TABLETS BY MOUTH ON DAY 1, AND THEN TAKE 1 TABLET BY MOUTH ONCE A DAY ON DAY 2 THROUGH DAY 5 active Not Available Not Available No t Available topiramate 25 mg tablet TAKE 1 TABLET BY MOUTH EVERY NIGHT AT BEDTIME active Not Available Not Available No t Available amlodipine 5 mg tablet TAKE 1 TABLET(S) EVERY DAY BY ORAL ROUTE. 01/14 completed Not Available Not Available Not Available amlodipine 10 mg tablet TAKE 1 TABLET BY MOUTH ONCE DAILY active Not Available Not Available No t Available ferrous sulfate 325 mg (65 mg iron) tablet TAKE 1 TABLET BY MOUTH TWICE A DAY ----REFIL LS DENIED BY SHEREE RIVERA06/28/15 - NEEDS APPOINTME NT 2014 active Not Available Not Available Not Avai lable metoprolol tartrate 50 mg tablet TAKE 1 TABLET BY MOUTH TWICE DAILY active Not Available Not Available No t Available omeprazole 20 mg capsule,del ayed release TAKE 1 CAPSULE BY MOUTH ONCE DAILY active Not Available Not Available No t Available losartan 100 mg tablet TAKE 1 TABLET BY MOUTH EVERY DAY 01/14 completed Not Available Not Available Not Available metoprolol tartrate 25 mg tablet TAKE 1 TABLET TWICE A DAY 01/14 completed Not Available Not Available Not Available hydrochloro thiazide 12.5 mg tablet TAKE 1 TABLET BY MOUTH ONCE DAILY active Not Available Not Available No t Available Vitals Date Recorded Body height Provider Name an d Address Organization Details Last Updated DateTime 01/14/2021 144.78 cm Alfreda Mckinnon [place] 021 17:51:56 Date Recorded Body height Provider Name an d Address Organization Details Last Updated DateTime 11/02/2022 144.78 cm Alfreda Mckinnon MA [place] 022 17:27:17 Date Recorded Body mass index (BMI) Body weight Provider Name and Address Organization Details Last Updated DateTime 11/02/2022 42.2 kg/m2 79475.51 g Alfreda Mckinnon [place] 11/02/2022 17:27:21 Social History Question Answer Notes LastModified by Organizat ion Details LastModified Time Tobacco Smoking Status Never Smoker 2 ALICIA [place], [place] - [facility] 11/02/2022 17:28:39 Do You Have An Advance Directive? No Information not available 01/15/2020 What Is Your Level Of Alcohol Consumption? Occasional Information not available 01/15/2020 Are You Blind Or Do You Have Difficulty Seeing? Yes Information not available 11/02/2022 Is Blood Transfusion Acceptable In An Emergency? Yes Information not available 01/15/2020 What Is Your Level Of Caffeine Consumption? Heavy Information not available 01/15/2020 How Much Tobacco Do You Chew? None Information not available 01/15/2020 In The 14 Days Before Symptom Onset, Have You Had Close Contact With A Laboratory-confir med COVID-19 While That Case Was Ill? No Information not available 11/02/2022 In The 14 Days Before Symptom Onset, Have You Had Close Contact With A Person Who Is Under Investigation For COVID-19 While That Person Was Ill? No Information not available 11/02/2022 Have You Been To An Area Known To Be High Risk For COVID-19? No Information not available 11/02/2022 Are You Currently Employed? Yes Information not available 01/15/2020 Are You Deaf Or Do You Have Serious Difficulty Hearing? No Information not available 11/02/2022 What Type Of Diet Are You Following? REGULAR Information not available 01/15/2020 Which Illicit Or Recreational Drugs Have You Used? Pt Denies Information not available 01/15/2020 Do You Or Have You Ever Used E-cigarettes Or Vape? Never Used Electronic Cigarettes Information not available 01/15/2020 Education 12 Information not available 01/15/2020 What Is Your Occupation? [employer] Information not available 01/15/2020 Are There Any Guns Present In Your Home? No Information not available 11/02/2022 Live Alone Or With Others? With Others With Son Information not available 01/15/2020 How Many Children Do You Have? 4 Information not available 01/15/2020 Performs Monthly Self-breast Exam? Yes Information no t available 01/15/2020 Do You Use Protection During Sex? Usually Information not available 01/15/2020 What Is Your Relationship Status? Single Information not available 01/15/2020 Do You Use Your Seat Belt Or Car Seat Routinely? No Information not available 11/02/2022 Seat Belts Used Routinely No Information not available 01/15/2020 Are You Sexually Active? Yes Information not available 01/15/2020 Do You Have Smoke And Carbon Monoxide Detectors In Your Home? Yes Information not available 11/02/2022 Are You Passively Exposed To Smoke? No Information no t available 11/02/2022 Do You Or Have You Ever Used Smokeless Tobacco? Never Used Smokeless Tobacco Information not available 01/15/2020 General Stress Level Medium Information not available 01/15/2020 Do You Feel Stressed (tense, Restless, Nervous, Or Anxious, Or Unable To Sleep At Night)? [id number] Information not available 11/02/2022 Do You Use Any Illicit Or Recreational Drugs? No Information not available 11/02/2022 Do You Use Sunscreen Routinely? No Information not available 01/15/2020 Has Tobacco Cessation Counseling Been Provided? No Information not available 11/02/2022 Do You Or Have You Ever Used Any Other Forms Of Tobacco Or Nicotine? No Information not available 11/02/2022 Sex: Female Functional Status Question Answer Note LastModified by Organizat ion Details LastModified Time Are you able to care for yourself? Yes Information not available 11/02/2022 What is your exercise level? Occasional Information not available 01/15/2020 Mental Status None recorded. Family History Relationship Description Onset Age of this Age Resolved Age Notes LastModified by Organization Details LastModified Time Son Hypertensive disorder [email or web address] Not available 2019 14:31:32 Unspecified Relation Diabetes mellitus [email or web address] Not available 2019 14:31:38 Medical History Condition Response Coronary Artery Disease N Other N High Blood Pressure Y Atrial Fibrillation N Breast Cancer N Blood Clots N COPD N Depression N Lung Disease N Breast Problem N Anesthesia Complications N Headaches/Migraines N Anxiety Disorder N Muscle, Joint, or Bone Problems N Infertility N Polyps N Acid Reflux (GERD) N Cancer N Stroke N ADHD N Endometriosis N High Cholesterol N Liver Disease N Headaches N Schizophrenia N Thyroid Problems N Kidney or Bladder Problems N GI Problems N Acne N Skin Problems N Eating Disorder N Anemia N Heart Attack (ME) N Ovarian Cancer N Diabetes N Blood Transfusions N Seizures/Epilepsy N Abuse/Domestic Violence N Asthma N Allergies N Substance Abuse N Hepatitis N Heart Disease N Pre-Eclampsia N Osteoporosis N Heart Failure N Gynecological History Statement/Question Response Flow Heavy Date of LMP 10/05/2022 On BCP's at Conception? N STIs/STDs N HPV Vaccine N Duration of Flow (days) 5 Most Recent Mammogram Age at Menarche 12 Current Control Method Tubal Ligat ion Age at First Child 16 Frequency of Cycle (Q days) 28 Sexually Active? Y Menses Monthly Y Date of Last Pap Smear 01/15/2020 Sexual Problems? N LMP Unknown Obstetrics History GPAL:G 5 P 4 0 1 4 Type Value Multiple Births 0 Full Term 4 Induced 1 Spontaneous 0 Premature 0 Living 4 Ectopics 0 Total 5 Past Encounters Encounter ID Performer Location Encounter Start Date Encounter Closed Date Diagnosis/Indication Diagnosis SNOMED-CT Code Diagnosis ICD10 Code Diagnosis Note [id number] [address] [address] 03/23/2015 18:16:05 03/24/2015 14:00:25 Essential hypertension 71388272 meds and follow up... stressed compliance [id number] [address] [address] 01/15/2020 13:56:07 01/20/2020 12:57:29 Screening for malignant neoplasm of cervix 437430995 Z12.4 Screening mammography 24 669777 Z12.31 Galactorrh ea not associated with childbirth 73708242 N64.3 Uterine leiomyoma 144062 05 D25.9 -long history of uterine fibroids.- obtain copy of CT Essential hypertension 81077566 I10 -Has new patient appointmen t with [facility] this month Morbid obesity 582922901 E66.01 [id number] RADHA ALSTON NP [address] [address] 01/30/2020 14:19:25 02/02/2020 11:36:27 Essential hypertension 18187681 I10 Adult heal th examination 564076091 Z00.01 [id number] Patricia Frederick [address] [address] 02/26/2020 14:25:11 02/26/2020 14:38:22 Galactorrhea not associated with childbirth 34487376 N64.3 Abnormal prolactin 88481 7009 R94.7 -galctorrh ea-elevate d prolactin nto associated with medication .-patient to contact [facility] to determine if she qualifies for the chencho program.-M RI to evaluated for prolactino mt [id number] RADHA ALSTON NP [address] [address] 04/30/2020 14:24:39 05/03/2020 07:14:19 Essential hypertension 36306061 I10 [id number] RADHA ALSTON NP [address] [address] 01/14/2021 17:13:33 01/15/2021 18:36:22 Essential hypertension 84528428 I10 Pain of le ft shoulder joint 1676140998 1170630 M25.618 [id number] Ryan Moies PA-C [address] [address] 12/29/2021 11:40:21 12/30/2021 07:39:26 Essential hypertension 89130931 I10 [id number] YOLA Brooks NP [address] [address] 11/02/2022 17:04:14 11/03/2022 10:28:29 Essential hypertension 67395694 I10 Health Concerns Section Related Observation LastModified by Organization Detai ls LastModified Time None Recorded Concern Status LastModified by Organization Details LastModified Time None Recorded Advance Directives Directive N: Payers Encounter Date Sequence Insurance Name Policy Number Policy Betancourt Covered Member ID Betancourt Member ID Guarantor Name 02/26/2020 1 *SELF PAY* Ca therine Salazar 04/30/2020 1 *SELF PAY* Ca therine Salazar 01/14/2021 1 *SELF PAY* Ca therine Salazar 12/29/2021 1 *SELF PAY* Ca therine Salazar 11/02/2022 1 *SELF PAY* Ca therine Salazar Notes Date Note Type Note Provider Name and Address Organization Details Recorded Time 02/26/20 text/htm l 49 y.o. telephone visit for test results. No insurance. Patricia fisher [facility] 02/26/2020 14:38:16 04/30/20 20 text/htm l Hypertension F/UReported bypatient.Associated Symptoms:no dizziness; no lightheadedness; no chest pain; no shortness of breath; no palpitations; no edema; no calf pain with exertion Lifestyle:regular exercise; limiting/avoiding salt Medications:taking medications as directed; no side effects from medication pt states that she needs refill on htn meds RADHA ALSTON NP Attn: Accounting,[address] [place], [address], [facility] 04/30/2020 15:45:54 01/15/20 21 text/htm l Hypertension F/UReported bypatient.Associated Symptoms:no dizziness; no lightheadedness; no chest pain; no shortness of breath; no palpitations; no edema; no calf pain with exertion Lifestyle:regular exercise; limiting/avoiding salt Medications:taking medications as directed; no side effects from medicationShoulderReported bypatient.Hand Dominance:right Location:left Quality:aching Severity:moderate; pain level 5/10 Duration:2 months; continuous since onset Timing:acute Context:fall Alleviating Factors:NSAIDs Associated Symptoms:no weakness; no numbness; no tingling; no swelling; no redness; no warmth; no ecchymosis; no catching/locking; no popping/clicking; no buckling; no grinding; no instability; no radiation down arm; no drainage; no fever; no chills; no weight loss; no change in bowel/bladder habits pt states that she needs refill on htn meds RADHA ALSTON NP Attn: Accounting[address] [place], [address], [facility] 01/14/2021 18:58:57 12/29/19 22 text/htm l needs refills Ryan Moise PA-C Attn: Accounting,[address] [facility], [place], [address], [facility] 12/29/2021 20:04:55 11/02/20 22 text/htm l 52 yo female spoke vis phone W/O medication refill on BP meds, denies having any headaches, blurred vision, or dizziness, patient stated that she is compliant with medication regimen. YOLA Brooks NP Attn: Accounting,[address] [facility], [place], [address], [facility] 11/02/2022 17:41:28 OBGyn Episode No OBEpisode recorded.
--- NOTE | 2024-12-05 02:33 | ECG_ITS ---
Test Date: 2024-12-05 02:36:50 Measurements Intervals Julian Rate: 105 P: 58 DE: 204 QRS: 38 QRSD: 88 T: 53 QT: 314 QTc: 415 Interpretive Statements SINUS TACHYCARDIA ABNORMAL RHYTHM ECG No previous ECG available for comparison Electronically Signed On 12-05-2024 14:30:37 C SOFTWARE DEVELOPER by Ayla Lima M.D.
[2024-12-05 02:41] LABS: Basophils Percent Auto 0.5 % (0.2-1.2); Eosinophils Absolute Auto 0.2 K/mm3 (0-0.3); Hematocrit 38.7 % (37.0-47.0); Hemoglobin 12.1 g/dL (12.0-15.0); Immature Granulocyte Absolute 0.01 K/mm3 (0.00-0.031); Immature Granulocyte Percent A 0.2 % (0-0.5); Lymphocytes Absolute Auto 1.48 K/mm3 (0.9-3.2); Mean Corpuscular HGB Conc 31.3 g/dl (32-36); Mean Corpuscular Hemoglobin 24.8 pg (26-34); Mean Corpuscular Volume 79.3 fl (80-100); Mean Platelet Volume 9.1 fl (7.4-10.4); Monocytes Absolute Auto 0.4 K/mm3 (0.1-0.6); Monocytes Percent Auto 7.3 % (2.6-8.5); Neutrophils Absolute Auto 3.8 K/mm3 (1.3-6.7); Platelet Count Result 328 k/mm3 (150-375); Red Blood Count 4.88 M/mm3 (4.2-5.4); Red Cell Distribution Width 14.3 % (11.5-14.5); White Blood Count 5.9 K/mm3 (4.5-10.0)
[2024-12-05 02:53] LABS: Alanine Aminotransferase 15 U/L (6-35); Albumin Level 4.9 g/dL (3.5-5.1); Alkaline Phosphatase 83 U/L (38-126); Anion Gap 16 mmol/L (4-12); Aspartate Amino Transferase 20 U/L (14-36); Bilirubin,Total 0.6 mg/dL (0.2-1.3); Blood Urea Nitrogen 16 mg/dL (7-17); Calcium 9.7 mg/dL (8.4-10.2); Carbon Dioxide 23 mmol/L (22-30); Chloride 102 mmol/L (98-107); Estimated Glomerular Filt Rate > 60; Glucose 116 mg/dL (65-110); Lipase 148 U/L (23-300); Potassium 3.3 mmol/L (3.4-5.0); Sodium 141 mmol/L (137-145)
[2024-12-05 02:57] LABS: Add Urine Microscopic? YES; Appearance Urine Clear (Clear); Bacteria Urine None Seen /hpf; Bilirubin Urine Negative (Negative); Blood Urine 1+ (Negative); Color Urine Yellow (Yellow); Glucose Urine UA Negative (Negative); Ketones Urine Negative (Negative); Leukocyte Esterase Ur Negative LEU/UL (Negative); Nitrate Urine Negative (Negative); Protein Urine 1+ mg/dL (Negative); RBC Urine 0-2 /hpf (0-2); Specific Grav Ur 1.014 (1.001-1.035); Squamous Epithelial Cell Urine None Seen /hpf (Few); Urobilinogen Urine 0.2 mg/dL (<2.0); WBC Urine 0-5 /hpf (0-3)
[2024-12-05 03:17] LABS: Influenza A QL RT-PCR Negative (Negative); Influenza B QL RT-PCR Negative (Negative); RSV RNA, RT-PCR Negative (Negative); SARS-CoV-2 RNA PCR Negative (Negative)
[2024-12-05 06:48] VITALS: BP 137/79; PULSE 79; RESP 14; O2SAT 100
--- NOTE | 2024-12-05 07:08 | ED_ITS ---
HPI - Abdominal Pain General Chief Complaint: Abdominal Pain Stated Complaint: abd pain/ burning in chest Time Seen by Provider: 12/05/24 07:08 Source: patient Mode of arrival: ambulatory Limitations: no limitations History of Present Illness HPI narrative: 54 years old female came to the ED by private car complaining of intermittent abdominal pain, sharp, spasm for 1 week. She denies any fever, chills, nausea vomiting, aggravating or relieving factors or radiation of pain. History of bilateral tubal ligation, hypertension, depression and stress. Patient is telling me that she have quite a bit of stress lately. Patient started having epigastric burning sensation within 1 hour prior to arrival to the emergency room. Patient is not on anti-platelet or anticoagulant medication, no family history of coronary artery disease. Patient does smoke or drink or use drugs Related Data Home Medications ?Medication ?Instructions ?Recorded ?Confirmed ?Last Taken ?Type amlodipine 10 mg tablet 10 mg PO DAILY 01/18/21 Unknown History ferrous sulfate 325 mg (65 mg 325 mg PO DAILY 01/18/21 Unknown History iron) tablet hydrochlorothiazide 12.5 mg tablet 12.5 mg PO DAILY 01/18/21 Unknown History metoprolol tartrate 50 mg tablet 50 mg PO BID 01/18/21 Unknown History Allergies Allergy/AdvReac Type Severity Reaction Status Date / Time No Known Allergies Allergy Mild Verified 12/05/24 02:24 Review of Systems 2 Review of Systems: All systems reviewed & are unremarkable except as noted in HPI and below PMFSH Past Medical History Medical History Arthritis Fibroids Hypertension Surgical History Surgical History Hx of tubal ligation Social History Social History Smoking status: Never smoker Gender identity (if verbalized by the patient): Female Exam 2 Narrative: General appearance: Well-developed, well-nourished Skin: Normal color Head: Normocephalic, nontraumatic Eyes: Clear conjunctiva ENT: Oropharynx normal, ears normal, nose normal Neck: Supple, nontender Chest and respiratory: Airway patent, no respiratory distress, no accessory muscle use mild anterior chest wall tenderness with light palpation, no bruises, no swelling or rash Heart: Regular rate/rhythm Abdomen: Soft, mild epigastric tenderness, no organomegaly, quiet bowel sounds Vascular: Normal peripheral pulses, normal capillary refill. 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 as tested, no gross motor deficit Course Vital Signs Vital signs: Vital Signs Temperature 36.6 C 12/05/24 02:25 Pulse Rate 113 H 12/05/24 02:25 Respiratory Rate 14 12/05/24 02:25 Blood Pressure 178/77 H 12/05/24 02:25 Pulse Oximetry 98 12/05/24 02:25 Oxygen Delivery Room Air 12/05/24 02:25 Temperature 36.6 C 12/05/24 02:25 Pulse Rate 83 12/05/24 08:08 Respiratory Rate 18 12/05/24 08:08 Blood Pressure 151/80 H 12/05/24 08:08 Pulse Oximetry 97 12/05/24 08:08 Oxygen Delivery Room Air 12/05/24 02:25 MDM - Abdominal Pain MDM Narrative Medical decision making narrative: Patient presents with abdominal pain, mainly epigastric Vital signs showing blood pressure 178/77, improved without any medical intervention down to 137/79, heart rate 113, improved down to 79. Physical examination showing stressed anxious lady slight tenderness epigastric area Differential diagnosis includes anxiety like symptoms, gastritis, esophagitis, cholecystitis, diverticulitis, colitis, constipation, urinary tract infection less likely coronary disease. Blood workup today includes CBC, CMP, lipase, troponin showed a potassium 3.3, otherwise within normal limit Urinalysis showed no significant changes, Patient tested negative for COVID, flu and RSV CT abdomen and pelvis with IV contrast showed finding consistent with duodenitis, uterine fibroid changes Discharged on Protonix The pt was discharged to home.the pt,s condition upon discharge was fair,education was provided to the pt in reference to the final impression,discharge study results,treatment,prognosis and need for follow up . Differential Diagnosis Differential diagnosis: Likely other (As above) Medical Records Attestation: I reviewed the patient's medical records. Lab Data Attestation: I reviewed the patient's lab results. 12/05/24 02:34 12/05/24 02:34 Labs: Lab Results 12/05/24 12/05/24 Range/Units 02:34 02:41 WBC 5.9 (4.5-10.0) K/mm3 RBC 4.88 (4.2-5.4) M/mm3 Hgb 12.1 (12.0-15.0) g/dL Hct 38.7 (37.0-47.0) % MCV 79.3 L (80-100) fl MCH 24.8 L (26-34) pg MCHC 31.3 L (32-36) g/dl RDW 14.3 (11.5-14.5) % Plt Count 328 (150-375) k/mm3 MPV 9.1 (7.4-10.4) fl Immature Gran % (Auto) 0.2 (0-0.5) % Neut % (Auto) 64.0 (45.5-73.1) % Lymph % (Auto) 25.0 (18.3-44.2) % [place] % (Auto) 7.3 (2.6-8.5) % Eos % (Auto) 3.0 (0-4.4) % Baso % (Auto) 0.5 (0.2-1.2) % Lymph # (Auto) 1.48 (0.9-3.2) K/mm3 [place] # (Auto) 0.4 (0.1-0.6) K/mm3 Eos # (Auto) 0.2 (0-0.3) K/mm3 Baso # (Auto) 0.0 (0.0-0.1) K/mm3 Abs Immat Gran (auto) 0.01 (0.00-0.031) K/mm3 Absolute Neuts (auto) 3.8 (1.3-6.7) K/mm3 Absolute Nucleated RBC 0.000 (0.0-0.012) K/mm3 Nucleated RBC % 0.0 (0.0-0.2) % Sodium 141 (137-145) mmol/L Potassium 3.3 L (3.4-5.0) mmol/L Chloride 102 (98-107) mmol/L Carbon Dioxide 23 (22-30) mmol/L Anion Gap 16 H (4-12) mmol/L BUN 16 (7-17) mg/dL Creatinine 0.96 (0.7-1.0) mg/dL Estim Creat Clear Calc Not Reportable Estimated GFR > 60 (59 - ) Glucose 116 H (65-110) mg/dL Calcium 9.7 (8.4-10.2) mg/dL Total Bilirubin 0.6 (0.2-1.3) mg/dL AST 20 (14-36) U/L ALT 15 (6-35) U/L Alkaline Phosphatase 83 (38-126) U/L Troponin I < 0.012 (0.000-0.034) ng/mL Total Protein 9.0 H (6.3-8.2) g/dL Albumin 4.9 (3.5-5.1) g/dL Lipase 148 (23-300) U/L Urine Color Yellow (Yellow) Urine Appearance Clear (Clear) Urine pH 5.0 (5.0-9.0) Ur Specific [place] 1.014 (1.001-1.035) Urine Protein 1+ H (Negative) mg/dL Urine Glucose (UA) Negative (Negative) mg/dL Urine Ketones Negative (Negative) mg/dL Ur Blood (Man) 1+ H (Negative) Urine Nitrate Negative (Negative) Urine Bilirubin Negative (Negative) Urine Urobilinogen 0.2 (<2.0) mg/dL Leukocyte Esterase Rfl Negative (Negative) NETTE/UL Urine RBC 0-2 (0-2) /hpf Urine WBC 0-5 (0-3) /hpf Ur Squamous Epith Cells None seen (Few) /hpf Urine Bacteria None seen /hpf Urine Casts 3-5 Influenza A (RT-PCR) Negative (Negative) Influenza B (RT-PCR) Negative (Negative) RSV (RT-PCR) Negative (Negative) SARS-CoV-2 RNA (RT-PCR) Negative (Negative) Imaging Data Radiologist's impression: ITS Impressions Abdomen/Pelvis CT 12/05/24 07:40 IMPRESSION: 1. Mild thickening of the duodenum with subtle surrounding fatty infiltration, suspicious for duodenitis. No evidence for perforation. 2: Stable severe enlargement of the uterus with diffusely heterogeneous appearance consistent with fibroid changes. Given the lack of significant change this is unlikely to represent sarcomatous degeneration. Chest X-Ray 12/05/24 08:37 IMPRESSION: 1: NO ACUTE CARDIOPULMONARY DISEASE. ECG Data EKG #1: Attestation: I personally reviewed and interpreted this ECG as follows: ECG completion date: 12/05/24 Interpretation: Sinus tachy at 1:05 a.m., abnormal rhythm EKG, no previous EKG available for comparison Discharge Plan Discharge Clinical Impression: Duodenitis, Fibroid tumor Patient Disposition: Home, Self-Care Condition: Stable Instructions: Duodenitis (ED) Additional Instructions: Return if symptoms are worsening , call your family physician for appointment, take Tylenol as as needed for aches and pain, continue home medications. CT scan of the abdomen today showed stable severe enlargement of the uterus, OBGYN follow-up is recommended within 7 days. Stop omeprazole Patient Language: Armenian Prescriptions: New pantoprazole [Protonix] 40 mg tablet,delayed release (DR/EC) 40 mg PO QAM 30 Days Qty: 30 0RF No Action tramadol [Ultram] 50 mg tablet 50 mg PO Q6H PRN (Reason: pain) Qty: 20 0RF amlodipine 10 mg Tablet 10 mg PO DAILY ferrous sulfate 325 mg (65 mg iron) Tablet 325 mg PO DAILY metoprolol tartrate 50 mg Tablet 50 mg PO BID hydrochlorothiazide 12.5 mg Tablet 12.5 mg PO DAILY amlodipine 10 mg tablet 10 mg PO DAILY Qty: 30 0RF hydrochlorothiazide 12.5 mg tablet 12.5 mg PO DAILY Qty: 30 0RF metoprolol tartrate 50 mg tablet 50 mg PO BID Qty: 60 0RF azithromycin 250 mg tablet See Rx Instructions PO .COMPLEX Qty: 6 0RF Rx Instructions: For 250 mg dose pack: take 500 mg today (day 1), then 250 mg for 4 days (days 2-5) omeprazole 20 mg capsule,delayed release(DR/EC) 20 mg PO DAILY Qty: 30 0RF Follow-up/Referrals: Adan,Sajan Daley MD [Non-Staff] - Stand Alone Forms: Work/School Release IP Quality HEART score for chest pain patients History: slightly suspicious ECG: normal Age: > 45 and < 65 years Risk factors: 1 or 2 risk factors Troponin: < or = to 1x normal limit Heart score: 2
[2024-12-05] MEDS: SODIUM CHLORIDE 0.9% IV 1,000 ML 999 ML IV CONT (07:42)
[2024-12-05] MEDS: MORPHINE SULFATE (*CRX) 4 MG/ML INJ IV PUSH (07:43)
[2024-12-05] MEDS: ONDANSETRON INJ 4 MG/2 ML VIAL IV PUSH (07:43)
[2024-12-05] MEDS: LORazepam (*CRX) 1 MG TABLET PO (08:07)
[2024-12-05 08:08] VITALS: BP 151/80; PULSE 83; RESP 18; O2SAT 97
[2024-12-05 08:37] LABS: Troponin I < 0.012 ng/mL (0.000-0.034)
[2024-12-05] MEDS: BELLADONNA ALK/PHENOB ELIX 10 ML, MAG HYDROX/ALUMINUM HYD/SIMETH 30 ML, LIDOCAINE 2% VI... PO (09:15)
[2024-12-05 09:23] VITALS: BP 140/81; PULSE 73; RESP 18; O2SAT 98
== END 2024-12-05 09:25 | disposition home or self-care (01) ==
PROVIDERS: Student in an Organized Health Care Education/Training Program; Emergency Provider Emergency Medicine
DX: K29.80 Duodenitis without bleeding (principal); D25.9 Leiomyoma of uterus, unspecified; Z20.822 Contact with and (suspected) exposure to COVID-19; I10 Essential (primary) hypertension; M19.90 Unspecified osteoarthritis, unspecified site; Z79.899 Other long term (current) drug therapy; R00.0 Tachycardia, unspecified
CPT/HCPCS: 36415; 71045; 74177; 80053; 81001; 83690; 84484; 85025; 87637; 93005; 96361; 96374; 96375; 99284; A9270; J2270; J2405; J7030; Q9967

== ENCOUNTER 2025-07-01 18:38 | Emergency (ER) | payer SELFPAY ==
--- NOTE | 2025-07-01 18:40 | ED_ITS ---
HPI - URI/Sore Throat General Chief Complaint: Upper Respiratory Infection Stated Complaint: flu like symptoms Time Seen by Provider: 07/01/25 18:40 Source: patient Mode of arrival: ambulatory Limitations: no limitations History of Present Illness HPI Narrative: Beulah is a 54-year-old female patient presenting to the clinic today with complaints of flu-like symptoms. She reports she is having some body aches, nasal congestion, cough, chest discomfort with coughing, and hot and cold flashes. She reports symptoms have been going on for 2-3 days. She reports the whole family has had around of illness and has had COVID illness in the home earlier in the month. Denies any chest pain or shortness of breath. Has taken Coricidin HBP for her symptoms. Rates pain currently a 02/12. Related Data Home Medications ?Medication ?Instructions ?Recorded ?Confirmed ?Last Taken ?Type amlodipine 10 mg tablet 10 mg PO DAILY 01/18/21 Unk nown History ferrous sulfate 325 mg (65 mg 325 mg PO DAILY 01/18/21 Unknown History iron) tablet hydrochlorothiazide 12.5 mg tablet 12.5 mg PO DAILY Unknown History metoprolol tartrate 50 mg tablet 50 mg PO BID 01/18/21 Unknown History Allergies Allergy/AdvReac Type Severity Reaction Status Date / Time No Known Allergies Allergy Mild Verified 07/01/25 18:43 Review of Systems Review of Systems: Pertinent positives per HPI. Patient denies any fever, rash, headache, visual changes, dizziness, shortness of breath, chest pain, palpitations, nausea, vomiting, diarrhea, constipation, abdominal pain, or any urinary issues. PMFSH Past Medical History Medical History Arthritis Fibroids Hypertension Surgical History Surgical History Hx of tubal ligation Social History Social History Smoking status: Never smoker Gender identity (if verbalized by the patient): Female Comments At the time of my signature, I reviewed and agree with the nursing past medical, surgical, social, and family history. There is no relevant family history pertinent to the patient complaint. Exam Narrative: General: Well-developed, morbidly obese, in no apparent distress Head: Normocephalic, atraumatic Eyes: Pupils equally round and reactive to light bilaterally, EOM intact, sclera and conjunctive clear, no discharge, lids normal Ears: TMs intact and congested, ear canals clear, no drainage, grossly hearing normal. Nose: Nares patent, clear nasal discharge, mild inflammation, no sinus tenderness. Mouth: Oral pharynx without lesions or masses, good dentition, MMM. Postnasal drip Neck: Supple, trachea midline, no enlargement of anterior or posterior cervical nodes, no thyroid masses or goiter palpable. Cardio: Tachycardic-Regular rate and rhythm, s1 and s2 normal, no murmur appreciated. Resp: Clear to auscultation bilaterally, no rhonchi, rales, wheezing or rubs Course Course Emergency Course: Portions of this record may have been created with voice recognition software. Level of Care: Express Care Visit Vital Signs Vital signs: Vital signs reviewed MDM - URI/Sore Throat MDM Narrative Medical decision making narrative: At the time of visit patient is resting comfortably on the exam table. Patient appears to be nontoxic. Complaints of flu-like symptoms. She reports she is having some body aches, nasal congestion, cough, chest discomfort with coughing, and hot and cold flashes. She reports symptoms have been going on for 2-3 days. She reports the whole family has had around of illness and has had COVID illness in the home earlier in the month. Denies any chest pain or shortness of breath. Has taken Coricidin HBP for her symptoms. Rates pain currently a 4/10. COVID and influenza testing was ordered. Labs: COVID and influenza testing was negative in the clinic today. Plan: I suspect patient has URI/viral syndrome. Lung sounds are clear and there is no sign of bacterial infection. Denies any shortness of breath or chest pain. Oxygen saturations 100% on room air. Her heart rate is elevated at 121 and blood pressure is elevated. She is afebrile. Supportive measures were discussed with the patient and they voiced understanding discharge instructions and agrees to treatment plan. Return precautions reviewed Differential Diagnosis Differential diagnosis: Likely upper respiratory infection, otitis media, sinusitis, viral infection, bronchitis, influenza, pharyngitis and other (COVID, gastroenteritis) Discharge Plan Discharge Clinical Impression: Viral infection Upper respiratory infection Qualifiers: URI type: unspecified URI Qualified Code(s): J06.9 - Acute upper respiratory infection, unspecified Patient Disposition: Home Condition: Stable Instructions: Antibiotic Form, Viral Syndrome (ED), Cold Symptoms (ED) Additional Instructions: COVID and influenza testing was negative in the clinic today. May continue Coricidin HBP for cold/flu symptoms Increase fluids and stay well hydrated May take Tylenol or motrin as directed on bottle for pain/fever May use Flonase 1 spray in each nare daily May take OTC antihistamines such as Zyrtec or Claritin daily as directed on bottle May apply Vicks vapor rub to chest to open sinuses Sinus rinses for congestion Cepacol spray, cough drops, throat lozenges, warm tea with honey/lemon, gargle salt water to soothe throat BRAT diet for diarrhea May take Imodium as needed for diarrhea as per bottle directions as long as there is no blood in your stool. Clear liquids x 24 hours then advance as tolerated for nausea/vomiting Go to the ED if you develop a worsening in your condition- high fever not controlled by Tylenol or Motrin, dehydration, weakness, lethargy, shortness of breath, or chest pain. Follow up with your PCP in 3-5 days if symptoms persist. Patient Language: Cymraes Prescriptions: No Action tramadol [Ultram] 50 mg tablet 50 mg PO Q6H PRN (Reason: pain) Qty: 20 0RF amlodipine 10 mg Tablet 10 mg PO DAILY ferrous sulfate 325 mg (65 mg iron) Tablet 325 mg PO DAILY metoprolol tartrate 50 mg Tablet 50 mg PO BID hydrochlorothiazide 12.5 mg Tablet 12.5 mg PO DAILY amlodipine 10 mg tablet 10 mg PO DAILY Qty: 30 0RF hydrochlorothiazide 12.5 mg tablet 12.5 mg PO DAILY Qty: 30 0RF metoprolol tartrate 50 mg tablet 50 mg PO BID Qty: 60 0RF omeprazole 20 mg capsule,delayed release(DR/EC) 20 mg PO DAILY Qty: 30 0RF pantoprazole [Protonix] 40 mg tablet,delayed release (DR/EC) 40 mg PO QAM 30 Days Qty: 30 0RF Follow-up/Referrals: UNKNOWN,DOCTOR [Primary Care Provider] Stand Alone Forms: Work/School Release IP Time of Disposition: 19:03 [facility] Nursing Documentation ED NIHSS nursing documentation: reviewed/agree
[2025-07-01 18:52] VITALS: BP 158/85; PULSE 121; RESP 18; TEMP 37.4; O2SAT 100
[2025-07-01 19:07] LABS: EDCOVIDSCREEN Negative (Negative); EDINFLUASCREEN Negative (Negative); EDINFLUBSCREEN Negative (Negative)
== END 2025-07-01 19:16 | disposition home or self-care (01) ==
PROVIDERS: Emergency Provider Nurse Practitioner Family
DX: B34.9 Viral infection, unspecified (principal); J06.9 Acute upper respiratory infection, unspecified; I10 Essential (primary) hypertension; Z20.822 Contact with and (suspected) exposure to COVID-19
CPT/HCPCS: 87426; 87804; 99212; G0463

== ENCOUNTER 2025-09-18 19:17 | Emergency (ER) | payer OTHER, SELFPAY ==
--- NOTE | ~2025-09-18 | XR_ITS ---
XR hip LT min 2V HISTORY: left lateral hip pain . COMPARISON: None FINDINGS: Two views of the left hip are provided for interpretation. There is no evidence of fracture or dislocation. The joint space is maintained. No soft tissue abnormalities are detected. IMPRESSION: Radiographic examination of the left hip demonstrates no acute fracture or dislocation. Reviewed, dictated and finalized at location S. 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
--- NOTE | 2025-09-18 19:17 | ED.FALL ---
HPI - Fall General Chief Complaint: Extremity Injury, Lower Stated Complaint: fall Time Seen by Provider: 09/18/25 19:17 Source: patient Mode of arrival: ambulatory Limitations: no limitations History of Present Illness HPI Narrative: Pauline is a 55-year-old female patient presenting to the clinic today with complaints of a fall injuring her left hip 1 week ago. She reports she slipped/fell on some steps and landed on her left posterior hip. Is having pain over the posterior hip and lateral hip. Pain is worse with walking. Rates her pain 7/10. Has been taking Aleve, Tylenol, heat, and ice. Denies hitting her head or any neck or back pain. Related Data Home Medications ?Medication ?Instructions ?Recorded ?Confirmed ?Last Taken ?Type amlodipine 10 mg tablet 10 mg PO DAILY 01/18/21 09/18/25 Unknown History ferrous sulfate 325 mg (65 mg 325 mg PO DAILY 01/18/21 09/18/25 Unknown History iron) tablet hydrochlorothiazide 12.5 mg tablet 12.5 mg PO DAILY 01/18/21 09/18/25 Unknown History metoprolol tartrate 50 mg tablet 50 mg PO BID 01/18/21 09/18/25 Unknown History Allergies Allergy/AdvReac Type Severity Reaction Status Date / Time No Known Allergies Allergy Mild Verified 09/18/25 19:20 Review of Systems Review of Systems: Pertinent positives per HPI. Patient denies any fever, chills, rash, headache, visual changes, dizziness, cough, runny nose, sore throat, shortness of breath, chest pain, palpitations, nausea, vomiting, diarrhea, constipation, abdominal pain, or any urinary issues. [facility] Past Medical History Medical History Arthritis Fibroids Hypertension Surgical History Surgical History Hx of tubal ligation Social History Social History Smoking status: Never smoker Gender identity (if verbalized by the patient): Female Comments At the time of my signature, I reviewed and agree with the nursing past medical, surgical, social, and family history. There is no relevant family history pertinent to the patient complaint. Exam Narrative: General: Well-developed, obese, in no apparent distress Head: Normocephalic, atraumatic. Cardio: Regular rate and rhythm, s1 and s2 normal, no murmur appreciated. Resp: Clear to auscultation bilaterally, no rhonchi, rales, wheezing or rubs. Musculoskeletal: No deformity, no tenderness over her cervical spine, thoracic spine, or lumbar spine, tender to palpation over the left posterior and lateral hip, grossly normal range of motion, some pain with crossing leg across right leg, muscle strength strong and equal, peripheral pulse strong, no edema, no cyanosis, normal gait and station Course Course Emergency Course: Portions of this record may have been created with voice recognition software. Level of Care: Express Care Visit Vital Signs Vital signs: Vital Signs Temperature 37.2 C 09/18/25 19:26 Pulse Rate 131 H 09/18/25 19:26 Respiratory Rate 16 09/18/25 19:26 Blood Pressure 161/75 H 09/18/25 19:26 Pulse Oximetry 99 09/18/25 19:26 Oxygen Delivery Room Air 09/18/25 19:26 Temperature 37.2 C 09/18/25 19:26 Pulse Rate 131 H 09/18/25 19:26 Respiratory Rate 16 09/18/25 19:26 Blood Pressure 161/75 H 09/18/25 19:26 Pulse Oximetry 99 09/18/25 19:26 Oxygen Delivery Room Air 09/18/25 19:26 Vital signs reviewed MDM - Fall MDM Narrative Medical decision making narrative: At the time of visit patient is resting comfortably on the exam table. Patient appears to be nontoxic. Complaints of a fall injuring her left hip 1 week ago. She reports she slipped/fell on some steps and landed on her left posterior hip. Is having pain over the posterior hip and lateral hip. Pain is worse with walking. Rates her pain 7/10. Has been taking Aleve, Tylenol, heat, and ice. Denies hitting her head or any neck or back pain. Patient appears anxious on exam. Clothing smells like THC. Denies any chest pain or shortness of breath. On exam patient has tenderness over the left posterior hip and lateral hip. Has full range of motion of the left hip, pain is worse with crossing legs and bearing weight. X-ray of the left hip was ordered. Diagnostics: X-ray of the left hip was performed and was negative for any sign of fracture or malalignment. Plan: I suspect patient has left hip contusion/hip strain/ acute pain. Will send in prescription for some baclofen and Medrol Dosepak. Supportive measures were discussed with the patient and they voiced understanding discharge instructions and agrees to treatment plan. Return precautions reviewed Differential Diagnosis Differential diagnosis: Likely other (Left hip fracture, pelvic fracture, contusion, soft tissue swelling, hip sprain/strain) Imaging Data Radiologist's impression: ITS Impressions Hip X-Ray 09/18/25 19:34 IMPRESSION: Radiographic examination of the left hip demonstrates no acute fracture or dislocation. Discharge Plan Discharge Clinical Impression: Fall, Acute pain of left hip Patient Disposition: Home Condition: Stable Instructions: Antibiotic Form, Fall Prevention for Older Adults (ED), Hip Pain (ED) Additional Instructions: Take any prescription medication only as prescribed-baclofen and Medrol Dosepak Be mindful of sedation precautions given to you if taking a muscle relaxer. May use heat or ice to the affected area Consider massage or chiropractor adjustment if this was discussed with provider May use blue emu, lidocaine patches, or asper cream to affected area- do not apply heat or ice directly over cream- can cause burn. Complete appropriate hip stretching exercises. Follow up with your PCP in 3-5 days if symptom persist. Patient Language: Gabonese Prescriptions: New methylprednisolone [Medrol ([place])] 4 mg tablets,dose pack See Rx Instructions PO .COMPLEX Qty: 21 0RF Rx Instructions: orally per package directions baclofen 10 mg tablet 10 mg PO TID PRN (Reason: muscle spasm) 7 Days Qty: 21 0RF No Action amlodipine 10 mg Tablet 10 mg PO DAILY ferrous sulfate 325 mg (65 mg iron) Tablet 325 mg PO DAILY metoprolol tartrate 50 mg Tablet 50 mg PO BID hydrochlorothiazide 12.5 mg Tablet 12.5 mg PO DAILY amlodipine 10 mg tablet 10 mg PO DAILY Qty: 30 0RF hydrochlorothiazide 12.5 mg tablet 12.5 mg PO DAILY Qty: 30 0RF metoprolol tartrate 50 mg tablet 50 mg PO BID Qty: 60 0RF omeprazole 20 mg capsule,delayed release(DR/EC) 20 mg PO DAILY Qty: 30 0RF Follow-up/Referrals: UNKNOWN,DOCTOR [Non-Staff] Stand Alone Forms: Work/School Release IP Time of Disposition: 19:41 Quality NIHSS Nursing Documentation ED NIHSS nursing documentation: reviewed/agree
[2025-09-18 19:26] VITALS: BP 161/75; PULSE 131; RESP 16; TEMP 37.2; O2SAT 99
== END 2025-09-18 19:48 | disposition home or self-care (01) ==
PROVIDERS: Emergency Provider Nurse Practitioner Family; PCP Physician Assistant
DX: M25.552 Pain in left hip (principal); W10.9XXA Fall (on) (from) unspecified stairs and steps, initial encounter; I10 Essential (primary) hypertension; M19.90 Unspecified osteoarthritis, unspecified site
CPT/HCPCS: 73502; 99213; G0463